=== PATIENT | male | born 1970 | race Caucasian/White ===

== ENCOUNTER 2022-06-14 12:18 | Outpatient (REF) | payer OTHER, SELFPAY ==
[2022-06-14 15:32] LABS: COMMENT (LAB VIEW ONLY) 206.75 mg/dL; Microalb ug/mg Crea 5.1 ug/mg Cr
== END 2022-06-14 12:19 | disposition home or self-care (01) ==
LOC: NCHCN 12:18
PROVIDERS: PCP Family Medicine; Visit Provider Family Medicine
DX: E11.9 Type 2 diabetes mellitus without complications (principal)
CPT/HCPCS: 82043; 82570

== ENCOUNTER 2022-08-05 08:13 | Outpatient (RCR) | payer OTHER, SELFPAY | END 2022-08-06 23:59 | disposition home or self-care (01) | LOC: CR 08:13 | PROVIDERS: PCP Family Medicine; Visit Provider Internal Medicine Cardiovascular Disease | DX: I25.2 Old myocardial infarction (principal); Z95.5 Presence of coronary angioplasty implant and graft; Z95.1 Presence of aortocoronary bypass graft; Z51.89 Encounter for other specified aftercare | CPT/HCPCS: S9472 ==

== ENCOUNTER 2022-08-26 08:29 | Outpatient (RCR) | payer OTHER, SELFPAY | END 2022-09-03 23:59 | disposition home or self-care (01) | LOC: CR 08:29 | PROVIDERS: PCP Family Medicine; Visit Provider Internal Medicine Cardiovascular Disease | DX: I25.2 Old myocardial infarction (principal); Z95.5 Presence of coronary angioplasty implant and graft; Z95.1 Presence of aortocoronary bypass graft; Z51.89 Encounter for other specified aftercare | CPT/HCPCS: S9472 ==

== ENCOUNTER 2022-09-12 18:33 | Outpatient (REF) | payer OTHER, SELFPAY ==
[2022-09-12 21:09] LABS: Hemoglobin A1C 5.9 % (<5.7)
[2022-09-12 21:19] LABS: ALT 22 U/L (16-63); AST 11 U/L (15-37); Albumin 3.8 g/dL (3.4-5.0); Alkaline Phosphatase 69 U/L (46-116); Anion Gap 9.5 mmol/L (3-11); BUN 12 mg/dL (7-18); Bilirubin, Total 0.3 mg/dL (0.2-1.0); CO2 28.5 mmol/L (21.0-32.0); Calcium 9.3 mg/dL (8.5-10.1); Chloride 104 mmol/L (98-107); Estimated GFR 90.56 (mL/min/1.73m2); Glucose 107 mg/dL (74-106); Potassium 4.4 mmol/L (3.5-5.1); Sodium 142 mmol/L (136-145); Total Protein 7.4 g/dL (6.4-8.2)
== END 2022-09-12 18:34 | disposition home or self-care (01) ==
LOC: NCHCN 18:33
PROVIDERS: PCP Family Medicine; Visit Provider Family Medicine
DX: I10 Essential (primary) hypertension (principal); E11.9 Type 2 diabetes mellitus without complications
CPT/HCPCS: 80053; 83036

== ENCOUNTER 2022-10-04 08:21 | Outpatient (RCR) | payer OTHER, SELFPAY | END 2022-10-04 23:59 | disposition home or self-care (01) | LOC: CR 08:21 | PROVIDERS: PCP Family Medicine; Visit Provider Internal Medicine Cardiovascular Disease | DX: Z95.1 Presence of aortocoronary bypass graft (principal); I25.2 Old myocardial infarction; Z95.5 Presence of coronary angioplasty implant and graft | CPT/HCPCS: S9472 ==

== ENCOUNTER 2022-10-14 09:00 | Outpatient (RCR) | payer OTHER, SELFPAY | END 2022-11-03 23:59 | disposition home or self-care (01) | LOC: CR 09:00 | PROVIDERS: PCP Family Medicine; Visit Provider Internal Medicine Cardiovascular Disease | CPT/HCPCS: S9472 ==

== ENCOUNTER 2023-03-04 10:56 | Outpatient (REF) | payer OTHER, SELFPAY ==
[2023-03-04 16:13] LABS: Calculated LDL 40 mg/dL (<100); Cholesterol 100 mg/dL (<200); HDL Cholesterol 40 mg/dL (40-60); Triglyceride 100 mg/dL (<150)
== END 2023-03-04 10:57 | disposition home or self-care (01) ==
LOC: NCHCN 10:56
PROVIDERS: PCP Family Medicine; Visit Provider Family Medicine
DX: E78.5 Hyperlipidemia, unspecified (principal)
CPT/HCPCS: 80061

== ENCOUNTER 2023-09-19 10:30 | Outpatient (REF) | payer OTHER, SELFPAY ==
[2023-09-19 14:27] LABS: BUN 16 mg/dL (7-18); Calcium 9.3 mg/dL (8.5-10.1); Chloride 103 mmol/L (98-107); Glucose 144 mg/dL (74-106); Potassium 4.7 mmol/L (3.5-5.1); Sodium 137 mmol/L (136-145)
[2023-09-19 14:38] LABS: Hemoglobin A1C 6.1 % (<5.7)
== END 2023-09-19 10:31 | disposition home or self-care (01) ==
LOC: NCHCN 10:30
PROVIDERS: PCP Family Medicine; Visit Provider Family Medicine
DX: E11.9 Type 2 diabetes mellitus without complications (principal)
CPT/HCPCS: 80048; 83036

== ENCOUNTER 2024-03-23 12:40 | Outpatient (REF) | payer BC, SELFPAY ==
--- OUTSIDE RECORDS SUMMARY | 2024-03-23 12:43 | XMS_ITS | Continuity of Care Document ---
Author Organization [facility] Address [address] [place] [address] Assessment No assessment recorded. Plan of Treatment Reminders Order Date Submit Date Provider Last Modified By Organization Details Last Modified Time Details Appointments Follow Up 2023 09:10A M Not available Not available Not available Follow Up 2024 09:10A M Not available Not available Not available Lab microalbu min/creat inine, ratio, urine 2023 024 [email or web address] 1 [facility] (Registration ), [address] [place] [address] [place], [address], 03/23/2024 10:10:02 Referral None recorded. Procedures None recorded. Surgeries None recorded. Imaging None recorded. Medication Orders metformin ER 500 mg tablet,ex tended release 24 hr 2023 024 [facility], [address] [place] [address], [id number], 03/23/2024 09:43:37 carvedilo l 6.25 mg tablet 2023 024 [facility], [address] [place] [address], [id number], 03/23/2024 09:43:39 aspirin 81 mg tablet,de layed release 2023 024 [facility], [address] [place] [address], [id number], 03/23/2024 09:43:38 atorvasta tin 80 mg tablet 2023 024 [facility], [address], [place], [address], 03/23/2024 09:43:39 Patient TargetsNo targets recorded. Patient InstructionsNo instructions recorded. 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 Could you help him at least get it cheaper and/or may be interested in getting updated to Dexcom G7. Thank you! Referring Physician: Radha Mckenna [facility], Encounter Date: 09/22/2023 Medical Nutrition Therapy Re ferral for Type 2 diabetes mellitus recent upgrade to dexcom g7 cgm a1c 8.4% Referring Physician: Radha Mckenna [facility], Encounter Date: 09/22/2023 Medical Nutrition Therapy Re ferral for Type 2 diabetes mellitus without complication recent upgrade to dexcom g7 cgm a1c 8.4% Referring Physician: Radha Mckenna [facility], Encounter Date: 09/22/2023 Results Created Date Observation Date Name Description Value Unit Range Abnormal Flag Note LastModifiedBy Organization Detail LastModifiedTime 03/21/20 24 04/05/2022 imagi ng/di agnos tic resul t No observ ation record ed. [email or web address] Not Available 03/21 23:06:51 03/21/20 24 07/05/2022 XR, chest No observ ation record ed. [email or web address] Not Available 03/21 23:07:45 03/21/20 24 05/17/2022 US, carot id arter y No observ ation record ed. [email or web address] Not Available 03/21 23:07:47 Result Notes None recorded. 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 Today, on exam B TMs with mucoid middle ear effusion , L canal irrigate d and TM visualiz ed with injectio n. Will treat with amox 875 mg BID X 7 days, and PRN use of meclizin e. Problem Code: H65.193; Problem Code Type: ICD-10; Not Available Formerly [facility] 3 05:06:[address] segment elevatio n myocardi al infarcti on 972825251 Active 2021 DORA ma, [facility] 4 10:22:47 Type 2 diabetes mellitus without complica tion 062509423 Active 2021 DORA VIDAL [facility], [facility] 4 10:22:52 Atherosc lerosis of coronary artery without angina pectoris 78047015063 4103 Active 2021 DORA ma, [facility] 4 10:22:32 Screenin g for malignan t neoplasm of colon Completed 202107/14/2022 Problem Code: Z12.11; Problem Code Type: ICD-10; Not Available [facility] 3 05:06:33 [facility] hyperten grabiel 82147511 Active 2021 DORA ma, [facility] 4 10:22:37 Hyperlip idemia 42162089 Active 2021 DORA ma, [facility] 4 10:22:42 Pressure injury of sacral region of back 695708770 Completed 202107/13/2022 Problem Code: L89.159; Problem Code Type: ICD-10; Not Available [facility] 3 05:06:33 History of malignan t melanoma of the skin 89042690114 8 Active 2021 Problem Code: Z85.820; Problem Code Type: ICD-10; Not Available [facility] 3 05:06:33 Morning cough 744534699 Active 2023 RADHA MCKENNA MD [address], [place], [address] , [facility] 4 09:41:10 Problem Notes None recorded. Medical Equipment None Reported. Medications Name Sig Start Date Stop Date Status Note LastModified by Organization Details LastModified Time Prescript ion - Renewal active [RxRsp] Not Available Not Available Not Available atorvasta tin 80 mg tablet TAKE 1 TABLET BY MOUTH EVERY DAY 2023 active Not Available Not Available Not Avai lable carvedilo l 6.25 mg tablet Take 1 tablet by mouth twice a day 2023 active Not Available Not Available Not Avai lable carvedilo l 12.5 mg tablet active Not Available Not Available Not Available Acetamino phen Extra Strength 500 mg tablet Take 2 tablet by mouth every six hours as needed for pain active [facility] d/c states up to 14 days for pain Not Available Not Available Not Available senna 8.6 mg tablet Take 2 tablets twice a day by oral route as needed for 14 days. 09/18 completed Not Available Not Available Not Available Plavix 75 mg tablet Take 1 tablet every day by oral route. 07/19 completed Not Available Not Available Not Available aspirin 81 mg tablet,de layed release Take 1 tablet by mouth once a day 2023 active Not Available Not Available Not Avai lable carvedilo l 3.125 mg tablet Take 1 tablet twice a day by oral route with meal(s). 09/18 completed change in dose Not Available Not Available Not Available amoxicill in 875 mg tablet 1 tablet twice a day 04/15 completed Not Available Not Available Not Available meclizine 25 mg tablet 1 tablet three times a day As needed for vertigo/ dizzines s 04/13 completed Not Available Not Available Not Available Lasix 20 mg tablet Take 1 tablet twice a day by oral route for 5 days. 09/18 completed Not Available Not Available Not Available pantopraz ole 40 mg tablet,de layed release Take 1 tablet every day by oral route for 14 days. 09/18 completed Not Available Not Available Not Available Viagra 25 mg tablet 1 tablet by mouth single dose 1 hour prior to sexual activity , may increase to 2 tablets if 1 tablet ineffect carly; maximum dose is 100mg in 24 hours 03/15 completed Not Available Not Available Not Available losartan 25 mg tablet Take 0.5 tablets every day by oral route. 09/18 completed pt reports no longer taking Not Available Not Available Not Available nitroglyc marie 0.4 mg sublingua l tablet 06/10 completed Not Available Not Available Not Available docusate sodium 100 mg capsule Take 2 capsules twice a day by oral route for 14 days. 09/18 completed Not Available Not Available Not Available metformin ER 500 mg tablet,ex tended release 24 hr take one tablet twice a day 2023 active Not Available Not Available Not Avai lable senna 8.6 mg capsule Take 2 capsule by mouth twice a day as needed for up to 14 days 06/24 completed Not Available Not Available Not Available Brilinta 90 mg tablet 06/10 completed Not Available Not Available Not Available Lite Touch Insulin Pen [place] 29 gauge x 1/2 09/18 completed pt report does not use Not Available Not Available Not Available potassium chloride ER 20 mEq tablet,ex tended release Take 1 tablet twice a day by oral route for 5 days. 09/18 completed pt reports no longer takes Not Available Not Available Not Available Cha Haines U-100 Insulin 100 unit/mL (3 mL) subcutane ous 06/14 completed Not Available Not Available Not Available Ozempic 0.25 mg or 0.5 mg (2 mg/1.5 mL) subcutane ous pen injector active Not Available Not Available Not Available RegaloCard G6 Sensor device USE TO CONTINUO USLY MONITOR BLOOD GLUCOSE active Not Available Not Available No t Available Dexcom G6 Transmitt er device USE DIRECTED FOR 90 DAYS active Not Available Not Available No t Available Ozempic 1 mg/dose (4 mg/3 mL) subcutane ous pen injector INJECT 0.75ML UNDER THE SKIN EVERY 7 DAYS 02/16 completed Not Available Not Available Not Available Ozempic 2 mg/dose (8 mg/3 mL) subcutane ous pen injector Inject 2 mg every week by subcutan eous route. active Not Available Not Available No t Available Vitals Date Recorded Body height Body mass index (BMI) Body weight Body temperature Oxygen saturation Oxygen saturation in Arterial blood by Pulse oximetry Heart rate Systolic blood pressure Diastolic blood pressure Provider Name and Address Organization Details Last Updated DateTime 177.8 cm 35.4 kg/m2 567620. 82 g 98 [degF] 98 % 98 % 85 /min 124 mm[Hg] 72 mm[Hg] DORA MUÑOZ LPN [facility] 09:16:46 Social History None recorded. Functional Status None recorded. Mental Status None recorded. Family History Nothing Reported Notes:*Problem: Father- kelsea bean, age 59 Mother breast CA HTN, living P. gramdomother- DM P. grandfather heart disease. Medical History No medical history recorded. Immunizations Vaccine Type Date Status Provider Name and Address Organization Details Recorded Time Tdap 06/24/2012 completed Not Available [facility] 05:32:32 SARS-COV-2 (COVID-19) vaccine, UNSPECIFIED 10/05/2020 completed Not Available [facility] 05/16/2023 05:32:33 Tdap 03/11/2023 completed Not Available [facility] 05:33:09 Pneumococcal conjugate PCV20, polysaccharide YEL834 conjugate, adjuvant, PF 03/11/2023 completed Not Available [facility] 07/18/2023 05:33:09 Past Encounters Encounter ID Performer Location Encounter Start Date Encounter Closed Date Diagnosis/Indication Diagnosis SNOMED-CT Code Diagnosis ICD10 Code [id number] RADHA MCKENNA MD [address] [address] 03/23/2024 09:05:36 03/23/2024 09:41:32 Essential hypertension 42567989 I10 Hyperlipidemia 30969897 E78.5 Type 2 siobhan betes mellitus without complication 665570866 E11.9 Morning cough 078648811 R05.9 Health Concerns Section Related Observation LastModified by Organization Detai ls LastModified Time None Recorded Concern Status LastModified by Organization Details LastModified Time None Recorded Payers Encounter Date Sequence Insurance Name Policy Number Policy Maki Covered Member ID Maki Member ID Guarantor Name 03/23/2024 1 [employer] MEDINA [id number] Yojana Negron [id number] AB Conrad Marley Notes Date Note Type Note Provider Name and Address Organization Details Recorded Time 03/23/2024 text/html HPI Notes: The patient reports that his A1C has improved, currently at 6.4, down from 11.5 in 2021. 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 He is also using a Dexcom device, with 87% of his blood sugars in range and 13% high but not very high. The patient denies any other health concerns. The patient has a colonoscopy scheduled for the , which was rescheduled due to insurance changes. He is also waiting for a dermatology appointment. He reports good sleep with the help of melatonin and a healthy diet, with plans to join a gym in the winter. The patient experiences occasional constipation, which he manages with dietary changes. He denies any trouble with urination. He reports a clear phlegm-like cough in the morning and sometimes during the day, which he has noticed since his heart attack. The patient denies any known allergies and is a never smoker. MD [address], [place], [address], [facility]. 03/23/2024 09:44:24
--- OUTSIDE RECORDS SUMMARY | 2024-03-23 12:44 | XMS_ITS ---
Author Organization Unknown Address [address] [place] [phone] Phone Care Team Providers Care Worsted Winder Name Role Phone CELESTINO GIORDANO Registered Nurse Unavailable CHE Coulter Attending Unavailable UNLISTED PROVIDER - REQUESTED Xhandoff Un available Results [facility] COVID FLU RSV GENEXPE RT - Collect Date/Time: 02/27/2022 12:10 [facility] ID: [id number] [address] [place] [address], [phone] LOINC: 61805-5 Test Value Unit Reference Range Code Code System Flag COVID NEGATIVE Normal: Negative 47562-4 LOINC INFLUENZA A DNA NEGATIVE Normal: Negative 52293-7 LOINC INFLUENZA B DNA NEGATIVE Normal: Negative 95733-3 LOINC RSV DNA NEGATIVE Normal: Negative 21968-7 LOINC TROPONIN HIGH SENSITIVITY* - Collect Date/Time: 02/27/2022 11:45 [facility] ID: [id number] [address] [place] [address], [address] LOINC: 91370-5 Test Value Unit Reference Range Code Code System Flag TROPONIN HS 324.0 pg/mL L=0.0 H=60.4 HH Specimen seq. ADM. PTT PARTIAL THROMBOPLASTIN T NELSON* - Collect Date/Time: 02/27/2022 11:45 [facility] ID: [id number] [address] [place] [address], [id number] LOINC: 76674-9 Test Value Unit Reference Range Code Code System Flag PTT 24 seconds L=24 H=32 45280-1 LOINC L PT PROTHROMBIN TIME* - Colle ct Date/Time: 02/27/2022 11:45 [facility] ID: [id number] [address] [place] [address], [address] LOINC: 5902-2 Test Value Unit Reference Range Code Code System Flag PROTIME 9.8 seconds L=9.3 H=11.4 5902-2 LOINC INR 0.98 L=2.00 H=3.00 20845-9 LOINC L D-DIMER - Collect Date/Time: 02/27/2022 11:45 [facility] ID: [id number] [address] [place] [address], [address] LOINC: 17637-0 Test Value Unit Reference Range Code Code System Flag D-DIMER 0.33 mg/L L=0.19 H=0.50 73566-0 LOINC COMPREHENSIVE METABOLIC PANE L (CMP) - Collect Date/Time: 02/27/2022 11:45 [facility] ID: [id number] [address] [place] [address], [address] LOINC: 13510-5 Test Value Unit Reference Range Code Code System Flag GLUCOSE 324 mg/dL L=70 H=116 2345-7 LOINC H BUN 16 mg/dL L=6 H=25 3094-0 LOINC CREATININE 1.04 mg/dL L=0.67 H=1.17 2160-0 LOINC SODIUM SERUM 134 mmol/L L=136 H=145 2951-2 LOINC L POTASSIUM SERUM 3.5 mmol/L L=3.4 H=5.2 2823-3 LOINC CHLORIDE SERUM 96 mmol/L L=96 H=110 2075-0 LOINC CARBON DIOXIDE (CO2) 24 mmol/L L=22 H=34 2028-9 LOINC ANION GAP 13.9 mmol/L 67965-8 LOINC CALCIUM SERUM 9.4 mg/dL L=8.2 H=10.2 91950-9 LOINC BILIRUBIN TOTAL 0.7 mg/dL L=0.0 H=1.3 1975-2 LOINC ALK. PHOS. 94 U/L L=46 H=116 6768-6 LOINC SGOT (AST) 12 U/L L=15 H=37 1920-8 LOINC L SGPT (ALT) 29 U/L L=12 H=78 1742-6 LOINC TOTAL PROTEIN 8.1 gm/dL L=6.0 H=8.0 2885-2 LOINC H ALBUMIN 4.2 gm/dL L=3.4 H=5.0 1751-7 LOINC AGE 51 years eGFR (non-Afr.Amer.) 75 mL/min 90788-0 LOINC eGFR (Afr-Bruneian) 91 mL/min 64192-3 LOINC BNP (PRO-B NATRIURETIC PEPTI DE) - Collect Date/Time: 02/27/2022 11:45 [facility] ID: [id number] [address] [place] [address], [address] LOINC: 09407-6 Test Value Unit Reference Range Code Code System Flag NT-proBNP 322.0 pg/mL L=0.0 H=125 85096-1 LOINC H CBC W/ DIFFERENTIAL* - Colle ct Date/Time: 02/27/2022 11:45 [facility] ID: [id number] [address] [place] [address], [address] LOINC: 43678-1 Test Value Unit Reference Range Code Code System Flag WBC 10.13 th/cmm L=5.00 H=10.00 6690-2 LOINC H NEUT % 55.8 % L=40.0 H=80.0 LYMPH % 35.4 % L=10.0 H=50.0 MONO % 7.1 % L=2.0 H=12.0 19397-5 LOINC EOS % 0.7 % L=0.0 H=8.0 BASO % 0.3 % L=0.0 H=3.0 IG % 0.7 % L=0.0 H=1.1 2514-8 LOINC NRBC % 0.0 % L=0.0 H=0.0 27689-9 LOINC NEUT abs count 5.7 th/cmm L=1.6 H=8.4 751-8 LOINC LYMPH abs count 3.6 th/cmm L=1.5 H=4.0 731-0 LOINC MONO abs count 0.7 th/cmm L=0.2 H=1.0 742-7 LOINC EOS abs count 0.1 th/cmm L=0.0 H=0.5 711-2 LOINC BASO abs count 0.0 th/cmm L=0.0 H=0.2 704-7 LOINC IG abs count 0.1 th/cmm L=0.0 H=0.1 84305-9 LOINC NRBC abs count 0.0 mil/cmm L=0.0 H=0.0 49488-8 LOINC RBC 5.99 mil/cmm L=4.30 H=6.20 789-8 LOINC HEMOGLOBIN 18.0 gm/dL L=13.0 H=17.0 718-7 LOINC H HEMATOCRIT 51 % L=45 H=52 4544-3 LOINC MCV 85 fL L=82 H=92 787-2 LOINC MCH 30.1 pg L=27.0 H=31.0 785-6 LOINC MCHC 35.3 % L=32.0 H=36.0 786-4 LOINC RDW-SD 39.2 fL L=39.0 H=49.0 788-0 LOINC PLATELET COUNT 398 th/cmm L=150 H=450 777-3 LOINC XR CHEST PORTABLE OR 1V - Co mpleted: 02/27/2022 11:58 LOINC: PORTABLE AP CHEST: The heart is not enlarged. The lungs appear clear and well expanded. CONCLUSION:No evidence of acute process. Dictated by: ASHLEY YOUNG MD Transcribed by: MARIAM 02/28/22/15:49 D Sunday, February 27, 2022 11:56:38 AM [id number] Electronically Reviewed and Signed By: HUANG YOUNG MD 03/01/22 09:05 Copy for: ATTILA Ríos via fax Copy for: [facility] HEALTH INFORMATION MGMT DISCHARGED Social History Type Status Start Date End Date Code Code Syst em Sex Male Vital Signs Vital Sign Value Unit Christmas Value Christmas Unit Date/Time Recent/Initial? Code Code System Body Mass Index 34.44 kg/m2 02/27/2022 11:36 Initial 74611 -5 LOINC Systolic Blood Pressure 161 mm[Hg] 02/27/2022 11:36 Initial 8480- 6 LOINC Diastolic Blood Pressure 107 mm[Hg] 02/27/2022 11:36 Initial 8462- 4 LOINC Body Surface Area 2.32 m2 02/27/2022 11:36 Initial 3140- 1 LOINC Height 177.800 0 cm 70.00 in 02/27/2022 11:36 Initial 8302- 2 LOINC O2 Saturation 97 % 2021 11:36 Initial 22814 -5 LOINC Pulse 114.0 /min 02/27/2022 11:36 Initial 8867- 4 LOINC Respiration 18 /min 02/28/20 11:36 Initial 9279- 1 LOINC Weight 108.86 kg 240.00 lbs 02/27/2022 11:36 Initial 32776 -7 INC Hospital Discharge Instructions Should you have any questions prior to discharge, please contact a member of your healthcare team. If you have left the hospital and have any questions, please contact your primary care physician. Reason For Referral No Data Found Allergies and Adverse Reactions Allergy Substance Reaction Severity Start Date Concern Status Co de Code System No Known Drug Allergies Active 140145744 SNOMED-CT Plan of Treatment No Data Found Encounters Encounter Diagnosis Start Date Code Code Sys tem ST elevation (STEMI) myocard ial infarction of unspecified site 02/27/2022 SNOMED-CT Personal Care Team Section Performer Name Performer Role Active Date Inactive Da te
[2024-03-23 17:03] LABS: Microalb ug/mg Crea 13.3 ug/mg Cr
== END 2024-03-23 12:41 | disposition home or self-care (01) ==
LOC: NCHCN 12:40
PROVIDERS: PCP Family Medicine; Visit Provider Family Medicine
DX: E11.9 Type 2 diabetes mellitus without complications (principal)
CPT/HCPCS: 82043; 82570

== ENCOUNTER 2024-09-20 14:38 | Outpatient (REF) | payer BC, SELFPAY ==
[2024-09-20 14:58] LABS: ALT 28 U/L (16-63); AST 23 U/L (15-37); Albumin 3.9 g/dL (3.4-5.0); Alkaline Phosphatase 78 U/L (46-116); Anion Gap 4.9 mmol/L (3-11); BUN 11 mg/dL (7-18); Bilirubin, Total 0.8 mg/dL (0.2-1.0); CO2 29.1 mmol/L (21.0-32.0); CREATININE 1.1 mg/dL (0.70-1.30); Calcium 8.9 mg/dL (8.5-10.1); Chloride 105 mmol/L (98-107); Estimated GFR 79.77 (mL/min/1.73m2); Glucose 133 mg/dL (74-106); Sodium 139 mmol/L (136-145); Total Protein 7.5 g/dL (6.4-8.2)
[2024-09-20 15:00] LABS: Hemoglobin A1C 6.1 % (<5.7)
== END 2024-09-20 14:39 | disposition home or self-care (01) ==
LOC: NCHCN 14:38
PROVIDERS: PCP Family Medicine; Visit Provider Family Medicine
DX: I10 Essential (primary) hypertension (principal); E11.9 Type 2 diabetes mellitus without complications
CPT/HCPCS: 80053; 83036